=== PATIENT | female | born 1985 | race Caucasian/White ===

== ENCOUNTER 2017-12-30 14:24 | Emergency (ER) | payer OTHER ==
[~2017-12-30] VITALS: Ht 157.5 cm; Wt 68.2 kg
[~2017-12-30 14:24] MED LIST: CEFD300C37 PO; LACT1CAP24 PO; LISI-167 PO; METR500T PO
[2017-12-30 15:36] LABS: ALANINE AMINOTRANSFERASE 34 U/L (12-78); ALBUMIN 3.5 g/dL (3.4-5.0); ANION GAP 10 mmol/L (5-15); CALCIUM 7.9 mg/dL (8.5-10.1); CHLORIDE 109 mmol/L (98-107); CREATININE 0.69 mg/dL (0.55-1.02)
[2017-12-30 15:41] LABS: ALKALINE PHOSPHATASE 74 U/L (45-117); BILIRUBIN,TOTAL 0.4 mg/dL (0.2-1.0)
[2017-12-30 15:48] LABS: BASOPHILS # (AUTO) 0.05 x10^3/uL (0-0.1); BASOPHILS % (AUTO) 1 % (0-1); EOSINOPHILS # (AUTO) 0.02 x10^3/uL (0-0.4); EOSINOPHILS % (AUTO) 0 % (1-7); LYMPHOCYTES # (AUTO) 1.29 x10^3/uL (1-3.4); LYMPHOCYTES % (AUTO) 21 % (22-44); MEAN CORPUSCULAR HEMOGLOBIN 26.1 pg (27.0-34.8); MEAN CORPUSCULAR HGB CONC 32.6 g/dL (32.4-35.8); MEAN CORPUSCULAR VOLUME 80.1 fL (80-100); MEAN PLATELET VOLUME 7.8 fL (7.4-10.4); MONOCYTES # (AUTO) 0.48 x10^3/uL (0.2-0.8); MONOCYTES % (AUTO) 8 % (2-9); NEUTROPHILS % (AUTO) 70 % (42-75); PLATELET COUNT 322 x10^3/uL (130-400); RED BLOOD COUNT 4.52 x10^6/uL (3.82-5.3)
[2017-12-30 15:49] LABS: ANISOCYTOSIS 1+; MD MORPH REVIEW ONLY; POLYCHROMASIA 1+; RED CELL DISTRIBUTION WIDTH 20.2 % (9.6-15.2)
[2017-12-30 15:51] LABS: <PLATELET ESTIMATE> ADEQUATE; LARGE PLATELETS 1+
[2017-12-30] MEDS ORDERED: ONDANSETRON 2MG/ML, 2ML ONE (16:28)
[2017-12-30] MEDS ORDERED: ONDANSETRON 2MG/ML, 2ML IVPush ONE (16:30)
[2017-12-30] MEDS ORDERED: SODIUM CHLORIDE 0.9% 1,000ML IVBOLUS ONE (16:30)
[2017-12-30] MEDS ORDERED: OMNIPAQUE 350 MG/ML, 100ML BOTTLE ONE (17:31)
[2017-12-30 18:10] LABS: MICROSCOPIC AUTO
[2017-12-30 18:16] LABS: CULTURE INDICATED? YES
[2017-12-30 19:02] VITALS: BP 129/74
== END 2017-12-30 19:04 | disposition home or self-care (01) ==
LOC: ED 18:00
DX: E86.0 Dehydration (principal); N30.90 Cystitis, unspecified without hematuria; K92.1 Melena; I10 Essential (primary) hypertension
CPT/HCPCS: 36415; 74177; 80053; 81001; 83690; 84703; 85025; 86850; 86900; 87077; 87086; 96361; 96374; 99285; J2405; J7030; Q9967; 87186

== ENCOUNTER 2018-07-12 18:55 | Emergency (ER) | payer OTHER ==
[~2018-07-12] VITALS: Ht 160 cm; Wt 64.9 kg
[2018-07-12 18:57] VITALS: BP 100/71
[2018-07-12] MEDS ORDERED: HYDROcodone/APAP 5/325 TABLET ONE (19:19)
[2018-07-12] MEDS ORDERED: LIDOCAINE-MPF 2% ,5ML ONE ×2 (19:19)
[2018-07-12] MEDS ORDERED: HYDROcodone/APAP 5/325 TABLET PO STA (19:20)
[2018-07-12] MEDS ORDERED: ONDANSETRON ODT 4 MG ONE (19:23)
[2018-07-12] MEDS ORDERED: DIPH,PERTUSS(ACELL),TET VAC/PF 0.5 ML IM-VACC ONE ×2 (19:27→19:30)
[2018-07-12] MEDS ORDERED: LIDOCAINE-MPF 1%, 5ML INFIL ONE (19:30)
[2018-07-12] MEDS ORDERED: ONDANSETRON ODT 4 MG PO ONE (19:30)
[2018-07-12] MEDS ORDERED: BACITRACIN ZINC OINT 500U/GM, 0.9 GM ONE (20:25)
== END 2018-07-12 20:22 | disposition home or self-care (01) ==
LOC: ED 19:53
DX: S51.811A Laceration without foreign body of right forearm, initial encounter (principal); S61.011A Laceration without foreign body of right thumb without damage to nail, initial encounter; S50.871A Other superficial bite of right forearm, initial encounter; S60.371A Other superficial bite of right thumb, initial encounter; I10 Essential (primary) hypertension; W54.0XXA Bitten by dog, initial encounter; Y93.89 Activity, other specified; Y92.009 Unspecified place in unspecified non-institutional (private) residence as the place of occurrence of the external cause; Y99.8 Other external cause status
CPT/HCPCS: 12031; 73090; 73130; 90471; 90715; 99284; Q0162